=== PATIENT | male | born 1990 | race Caucasian/White ===

== ENCOUNTER 2019-03-30 15:48 | Emergency (ER) | payer SELFPAY ==
[~2019-03-30] VITALS: Ht 170.2 cm; Wt 62.2 kg
[~2019-03-30 15:48] MED LIST: CEPH-443 PO; IBUP-1542 PO
[2019-03-30 16:00] VITALS: Ht 170.2 cm; Wt 62.2 kg
[2019-03-30 19:11] VITALS: BP 115/71; PULSE 70; RESP 18
== END 2019-03-30 19:11 | disposition home or self-care (01) ==
LOC: FTE 15:48
DX: N63.20 Unspecified lump in the left breast, unspecified quadrant (principal)
CPT/HCPCS: 76536